=== PATIENT | male | born 1975 | race African-American/Black ===

== ENCOUNTER 2017-11-11 21:08 | Emergency (ER) | payer SELFPAY ==
[~2017-11-11] VITALS: Ht 182.9 cm; Wt 133.3 kg
[2017-11-11 21:18] VITALS: Ht 182.9 cm; Wt 133.3 kg
== END 2017-11-12 02:35 | disposition left against medical advice (07) ==
LOC: E/R 21:08
DX: Z53.21 Procedure and treatment not carried out due to patient leaving prior to being seen by health care provider (principal)